=== PATIENT | male | born 1960 | race Two or more races ===

== ENCOUNTER → 2024-01-15 09:11 | Outpatient (REF) | payer BC, SELFPAY | LOC: RAD 09:11 | PROVIDERS: ATTENDING PHYSICIAN Internal Medicine Gastroenterology; FAMILY PHYSICIAN Family Medicine | DX: R10.13 Epigastric pain (principal) | CPT/HCPCS: 74246; 74248 ==

== ENCOUNTER → 2024-04-11 06:16 | Day surgery (SDC) | payer BC, SELFPAY ==
[2024-04-11 07:53] LABS: Glucose - Point of Care 83 mg/dl (70-99)
== END ==
LOC: GI 06:16
PROVIDERS: ATTENDING PHYSICIAN Internal Medicine Gastroenterology
DX: R19.5 Other fecal abnormalities (principal); R19.4 Change in bowel habit; R63.4 Abnormal weight loss; K57.50 Diverticulosis of both small and large intestine without perforation or abscess without bleeding; R10.13 Epigastric pain; K44.9 Diaphragmatic hernia without obstruction or gangrene; K31.7 Polyp of stomach and duodenum; K63.5 Polyp of colon
CPT/HCPCS: 45385; 43239; 88305; 82962